=== PATIENT | female | born 1940 | race Caucasian/White ===

== ENCOUNTER → 2024-07-07 11:13 | Outpatient (BNVA) | payer MEDICARE, SELFPAY | PROVIDERS: PCP Family Medicine; Visit Provider Podiatrist Foot & Ankle Surgery | DX: I73.9 Peripheral vascular disease, unspecified (principal); L60.3 Nail dystrophy; Q82.8 Other specified congenital malformations of skin; M20.10 Hallux valgus (acquired), unspecified foot | CPT/HCPCS: 11056; 11721; 99203 ==

== ENCOUNTER → 2024-07-28 10:36 | Outpatient (BNVA) | payer MEDICARE, SELFPAY | PROVIDERS: PCP Family Medicine; Visit Provider Podiatrist Foot & Ankle Surgery | DX: Q82.8 Other specified congenital malformations of skin (principal); L60.3 Nail dystrophy; I73.9 Peripheral vascular disease, unspecified; M20.10 Hallux valgus (acquired), unspecified foot | CPT/HCPCS: 17110 ==

== ENCOUNTER → 2024-09-29 09:49 | Outpatient (BNVA) | payer MEDICARE, SELFPAY | PROVIDERS: PCP Family Medicine; Visit Provider Podiatrist Foot & Ankle Surgery | DX: I73.9 Peripheral vascular disease, unspecified (principal); L60.3 Nail dystrophy; Q82.8 Other specified congenital malformations of skin | CPT/HCPCS: 11056; 11721 ==

== ENCOUNTER → 2024-12-06 12:37 | Outpatient (BNVA) | payer MEDICARE, SELFPAY | PROVIDERS: PCP Family Medicine; Visit Provider Podiatrist Foot & Ankle Surgery | DX: I73.9 Peripheral vascular disease, unspecified (principal); L60.3 Nail dystrophy; Q82.8 Other specified congenital malformations of skin | CPT/HCPCS: 11055; 11721 ==

== ENCOUNTER → 2025-02-16 13:53 | Outpatient (BNVA) | payer MEDICARE, SELFPAY | PROVIDERS: PCP Family Medicine; Visit Provider Podiatrist Foot & Ankle Surgery | DX: I73.9 Peripheral vascular disease, unspecified (principal); L60.3 Nail dystrophy; Q82.8 Other specified congenital malformations of skin; L60.8 Other nail disorders | CPT/HCPCS: 11056; 11721 ==

== ENCOUNTER 2025-05-12 10:17 | Emergency (ER) | payer MEDICARE, SELFPAY ==
[2025-05-12 10:19] VITALS: BP 174/91; PULSE 73; RESP 14; TEMP 36.2; O2SAT 95
--- NOTE | 2025-05-12 10:26 | CT_ITS ---
WS: [id number] CT HEAD TECHNIQUE: Noncontrast CT of the head obtained from the skullbase to the vertex. CLINICAL INFORMATION: trauma COMPARISON: None. DLP: 1143.[address] scans at [facility] use at least one of these dose optimization techniques: automated exposure control; mA and/or kV adjustment per patient size (includes targeted exams where dose is matched to clinical indication); or iterative reconstruction. FINDINGS: Intraparenchymal contusion/hematoma involving the RIGHT frontal lobe deep white matter measures 1.2 cm. Moderate surrounding edema. No significant subdural blood products. RIGHT periorbital soft tissue hematoma. No other foci of hemorrhage. Vascular calcification. Mild small vessel changes. Mild parenchymal volume loss. Tiny chronic lacunar infarct LEFT thalamus. CT/CT head wo con* [id number] IMPRESSION: 1. Intraparenchymal contusion/hematoma in the RIGHT frontal deep white matter measuring 1.2 cm with moderate surrounding edema. This may be from recent fall approximately 1 week ago. No other visualized blood products. Outside compariso ns have been requested. 2. RIGHT periorbital hematoma.
--- NOTE | 2025-05-12 10:26 | CT_ITS ---
WS: [id number] CT CERVICAL TRAUMA TECHNIQUE: Noncontrast CT of the cervical spine with coronal and sagittal reformatted images. CLINICAL INFORMATION: fall COMPARISON: None. DLP: 160.[address] scans at [facility] use at least one of these dose optimization techniques: automated exposure control; mA and/or kV adjustment per patient size (includes targeted exams where dose is matched to clinical indication); or iterative reconstruction. FINDINGS: Straightening of the normal cervical lordosis. Normal craniocervical junction. Normal C1-C2 articulation. Dens is normal in appearance. Normal occipital condyles. No high-grade spinal canal narrowing. Normal C1 ring. No evidence of acute fracture or dislocation. Moderate carotid bulb calcification. Normal prevertebral soft tissues. Mastoids air cells are well aerated. CT/CT cervical spin wo con* [id number] IMPRESSION: No evidence of acute fracture or dislocation.
--- NOTE | 2025-05-12 10:26 | XR_ITS ---
WS: [id number] Left hand, 3 views, 05/12/2025 Clinical Data: fall Comparison: None. Findings: No fractures or dislocations are seen. The soft tissues are unremarkable. 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 XR/XR hand LT min 3V* [id number] Impression: Negative for fracture or dislocation.
--- NOTE | 2025-05-12 10:26 | CT_ITS ---
WS: [id number] CT FACIAL BONES TECHNIQUE: Noncontrast facial bones with coronal and sagittal reformatted images. CLINICAL INFORMATION: fall/injury COMPARISON: None. DLP: 572.[address] scans at [facility] use at least one of these dose optimization techniques: automated exposure control; mA and/or kV adjustment per patient size (includes targeted exams where dose is matched to clinical indication); or iterative reconstruction. FINDINGS: Large RIGHT periorbital hematoma. Lateral orbit appears intact. No acute orbital fractures. Normal RIGHT zygoma. Normal pterygoid plates. Paranasal sinuses are well aerated. Mastoid air cells are well aerated. Nasal bones appear intact. Normal RIGHT sphenoid wing. Mild mucosal thickening in the LEFT greater than RIGHT maxillary sinuses. CT/CT facial bones wo con* [id number] IMPRESSION: No acute fractures.
--- NOTE | 2025-05-12 10:27 | ED_ITS ---
HPI - Fall General: Chief Complaint: Fall Stated Complaint: FALL Time Seen by Provider: 05/12/25 10:19 Source: patient and family Mode of arrival: wheelchair Limitations: no limitations History of Present Illness: Patient is an 84-year-old female presents to ED today along with her significant other for evaluation following a fall. Patient states she was in the hospital when she accidentally caught her foot causing her to fall and strike her face. Her main complaint is pain to her lip. No LOC. She is not complaining of back or hip/leg pain. She does have a right periorbital hematoma that is old from a previous injury/fall. Tetanus is up-to-date. She states she also sustained a skin tear to her left hand. MD complaint: fall Onset (ago): minute(s) Fall from: standing Fall witnessed: yes, by bystander Place fall occurred: other (hospital) Loss of consciousness: None Prolonged down time: no Symptoms prior to fall: none Context: tripped/slipped Location of injury: face Location of injury - extremities: Left: hand Severity: moderate Associated symptoms-after fall: Reports no associated symptoms; Denies abdominal pain, chest pain, headache(s), hematuria, lightheadedness or neck pain Related Data Home Medications ?Medication ?Instructions ?Recorded ?Confirmed aspirin 81 mg tablet,delayed 81 mg PO DAILY 05/12/25 1 07/13/24 release atenolol 50 mg tablet 50 mg PO DAILY 05/12/2504/25 cholecalciferol (vitamin D3) 25 25 mcg PO DAILY 05/12/25 mcg (1,000 unit) tablet (Vitamin D3) doxycycline hyclate 100 mg capsule 100 mg PO BID x5d 1 07/13/24 05/12/25 furosemide 20 mg tablet 20 mg PO DAILY 05/12/2504/25 hydrocodone 5 mg-acetaminophen 325 1 tab PO Q6H PRN Pa in 05/12/25 05/12/25 mg tablet levetiracetam 500 mg tablet 500 mg PO BID x5d 05/12/25 05/12/25 [id number]-[id number]-[id number] tablet 1 tab PO DAILY 05/12/25 prednisone 20 mg tablet 40 mg PO DAILY x5days 05/12/25 Previous Rx's ?Medication ?Instructions ?Recorded fluorouracil 5 % topical cream 1 applic topical BID 4 weeks #40 07/28/24 (Efudex) grams Allergies Allergy/AdvReac Type Severity Reaction Status Date / Time hydrocodone Allergy unknown Verified 05/12/25 09:40 tramadol Allergy ADR-Confusi Verified 05/12/25 09:40 on Review of Systems Eyes: Denies: change in vision, blurry vision, photophobia, eye discharge, floaters or seeing flashes ENMT: Reports: other (lip laceration); Denies: throat pain, odynophagia, ear or mastoid pain, ear discharge, nasal discharge, epistaxis or sinus pain Card: Denies: chest pain, palpitations, lightheadedness, syncope or pre- syncope Resp: Denies: dyspnea or pain on inspiration GI: Denies: abdominal pain, nausea or vomiting : Denies: flank pain or hematuria Musc: Reports: extremity pain (L hand, skin tear); Denies: neck pain, back pain or joint pain Skin/Breast: Reports: other (laceration L lower lip) Neuro: Denies: headache(s), numbness in extremities, weakness in extremities, sensory changes or dizziness PFS ED PFSH: Social History Smoking and tobacco/nicotine status: unknown if used tobacco/nicotine Physical Exam Const: COMMON NORMALS: no acute distress, average body habitus, patient oriented x3, no limitations, healthy appearing, alert and well nourished GENERAL APPEARANCE: cooperative ORIENTATION/CONSCIOUSNESS: Yes awake, Yes oriented to person, Yes oriented to place and Yes oriented to time HENMT: COMMON NORMALS: normocephalic, atraumatic, external ears normal, EAC's normal and TM's normal bilaterally HEAD & SCALP: normal to inspection, normocephalic and atraumatic; no Nunez's sign, no hematoma and no raccoon eyes FACE & SINUS: other (old/previous R periorbital hematoma with gravitating healing ecchymosis) NOSE: Other nasal findings present (scant amount of fresh blood to L nare-no active bleeding) EXTERNAL EAR: Yes external ears normal EXTERNAL AUDITORY CANAL: EAC's normal TYMPANIC MEMBRANE: TM's normal bilaterally MOUTH: tongue normal, Normal salivary glands and ducts present and lip abnormal (laceration L lower lip) TEETH & GINGIVA: Yes edentulous and Yes other (upper/lower dentures ) THROAT: posterior oropharynx normal and tonsils normal Eye: COMMON NORMALS: Equal, round and reactive pupils present and EOMs intact bilaterally GENERAL EYE: appearance normal, both eyes and all related structures and normal light reflex PUPIL: Yes Equal, round and reactive pupils present DIRECT OPHTHALMOSCOPY: Yes normal light reflex Neck/C-Spine: GENERAL: Yes normal visual inspection CERVICAL SPINE: No step off deformity OTHER: in c-collar upon arrival-not removed for ROM testing Chest: COMMONS NORMALS: normal inspection of the chest and normal palpation of entire chest wall Resp: COMMON NORMALS: normal respiratory effort and clear to auscultation bilaterally AUSCULTATION: clear to auscultation bilaterally Cardio: COMMON NORMALS: regular rate and regular rhythm RATE: regular rate RHYTHM: regular rhythm GI: COMMON NORMALS: Normal to inspection, nondistended, normoactive bowel sounds present, Soft to palpation, non-tender, No hepatosplenomegaly present and no masses INSPECTION: Yes normal to inspection and No abdominal wall ecchymosis AUSCULTATION: Yes normoactive bowel sounds PALPATION: Yes Soft to palpation and Yes No hepatosplenomegaly present Back/Pelvis: COMMON NORMALS: thoracic and lumbar spine normal to inspection, no thoracic nor lumbar tenderness and thoraco-lumbar ROM normal Extremity: COMMON NORMALS: full ROM and capillary refill normal GENERAL: Yes normal exam except as noted LEFT UPPER EXTREMITY: Yes hand & digits (small skin tear lateral L hand) Left hand and digits: Yes ROM (normal) and Yes neurovascular exam (normal) Neuro: VISHNU COMA SCALE: document GCS findings [place] coma scale eye opening: Spontaneous [place] coma scale verbal response: Orientated [place] coma scale motor response: Obey commands [place] coma scale total score: 15 COMMON NORMALS: patient oriented x3, CN's II-XII intact bilaterally, moves all extremities, no focal motor deficits and no sensory deficits noted SENSORIUM/ORIENTATION: Yes alert, Yes oriented to person, Yes oriented to place and Yes oriented to time SPEECH: speech normal GAIT: Yes Normal gait present Skin: COMMON NORMALS: no rashes or lesions noted GENERAL SKIN EXAM: no rashes or lesions noted TRAUMA: abrasion (L hand skin tear) and laceration (L lower lip lac) Procedures Laceration Laceration 1: Site: face (chin) Size (cm): 2.5 Description: linear Depth: simple, single layer Local Anesthetic: lidocaine 2% Amount of anesthesia used (mL): 2.0 Pre-repair: wound explored and irrigated extensively Skin layer closed with: other (prolene) Size (cm): 4-0 Number of sutures: 5 Technique: running Laceration 2: Site: lip Side (If applicable): left Size (cm): 1.5 Description: irregular Depth: simple, single layer Local Anesthetic: lidocaine 2% (mental nerve block) Pre-repair: wound explored and irrigated extensively Skin layer closed with: nylon Size (cm): 4-0 Number of sutures: 3 Technique: simple, interrupted Nerve Block Nerve Block 1: Local Anesthetic: lidocaine 2% Amount of anesthesia used (mL): 1.0 Side: left Intraoral Nerve Block: mental Procedure Successful: Yes Patient Tolerated Procedure: well Complications: none Course Vital Signs: Vital signs: Vital Signs Temperature 98 F 05/12/25 11:04 Pulse Rate 68 05/12/25 11:04 Respiratory Rate 14 05/12/25 11:04 Blood Pressure 159/119 05/12/25 11:04 Pulse Oximetry 94 05/12/25 11:04 Oxygen Delivery Me thod Room Air 05/12/25 11:04 MDM - Fall Medical Decision Making Patient is a nice 84-year-old female here after a trip and fall while in the hospital. She sustained lacerations to her left lower lip as well as her chin that were repaired. Tetanus is up-to-date. CT imaging of her head, cervical spine, and facial bones were obtained. Head CT showing an intraparenchymal contusion/hematoma in her right frontal lobe. Patient states she had fallen last week and was taken to [facility] where she stayed for several days. She was just discharged on Friday. states she had intracranial hemorrhage then. We did contact [facility] and have [facility] records uploaded as well as her CT scans from [facility]. I have spoken to Dr. Yusuf multiple times who has reviewed CT scan from today as well as CT scans upon [facility] discharge and CT scan today looks improved. Area noted on today's scan was present at discharge. Skin tear to hand was dressed. She will be allowed discharge. Medical Records I reviewed the patient's medical records. Lab Data Radiology Impressions Cervical Spine CT 05/12/25 10:26 IMPRESSION: No evidence of acute fracture or dislocation. Face CT 05/12/25 10:26 IMPRESSION: No acute fractures. Hand X-Ray 05/12/25 10:26 Impression: Negative for fracture or dislocation. Head CT 05/12/25 10:26 IMPRESSION: 1. Intraparenchymal contusion/hematoma in the RIGHT frontal deep white matter measuring 1.2 cm with moderate surrounding edema. This may be from recent fall approximately 1 week ago. No other visualized blood products. Outside comparisons have been requested. 2. RIGHT periorbital hematoma. All radiology interpretation(s) finalized by discharge Discharge Plan Discharge Patient Disposition: Home Clinical Impression: Fall on same level from tripping Chin laceration Qualifiers: Encounter type: initial encounter Qualified Code(s): S01.81XA - Laceration without foreign body of other part of head, initial encounter Laceration of lower lip Qualifiers: Encounter type: initial encounter Qualified Code(s): S01.511A - Laceration without foreign body of lip, initial encounter Skin tear of left hand without complication Qualifiers: Encounter type: initial encounter Qualified Code(s): S61.412A - Laceration without foreign body of left hand, initial encounter Contusion of face Qualifiers: Encounter type: initial encounter Qualified Code(s): S00.83XA - Contusion of other part of head, initial encounter Condition: Stable Prescriptions: No Action fluorouracil [Efudex] 5 % cream 1 applic topical BID 28 Days Qty: 40 0RF doxycycline hyclate 100 mg capsule 100 mg PO BID levetiracetam 500 mg tablet 500 mg PO BID hydrocodone-acetaminophen 5-325 mg tablet 1 tab PO Q6H PRN (Reason: Pain) prednisone 20 mg tablet 40 mg PO DAILY aspirin 81 mg tablet,delayed release (DR/EC) 81 mg PO DAILY furosemide 20 mg tablet 20 mg PO DAILY atenolol 50 mg tablet 50 mg PO DAILY Centrum Silver Tablet 1 tab PO DAILY cholecalciferol (vitamin D3) [Vitamin D3] 25 mcg (1,000 unit) Tablet 25 mcg PO DAILY Discharge Orders: Discharge ED (Routine); Ordered 05/12/25 Ordered By: Latonya Chilel Referrals: Matt Lee DO [Primary Care Provider] Patient Instructions: Patient Portal & [place] Instructions Activity Restrictions/Additional Instructions: Keep wound/laceration clean with warm soap and water twice daily. Monitor for signs of infection such as redness, swelling, increased pain, or drainage. Please seek medical re-evaluation if these occur. If you received sutures today these will need to be removed (unless you were told by the provider that they are absorbable). The provider should have discussed with you the length of time until removal-7 days. Print Language: Samoan Coding Level of Care Code ED Optical Assistant for Dyana Contreras
[2025-05-12 11:04] VITALS: BP 159/119; PULSE 68; RESP 14; TEMP 36.6; O2SAT 94
[2025-05-12 12:00] VITALS: BP 150/98; PULSE 71; RESP 18; O2SAT 98
[2025-05-12 12:30] VITALS: BP 96/65; PULSE 72; RESP 17; TEMP 36.6; O2SAT 97
[2025-05-12 14:37] VITALS: BP 124/86; PULSE 71; RESP 16; O2SAT 97
== END 2025-05-12 14:39 | disposition home or self-care (01) ==
PROVIDERS: Emergency Provider Physician Assistant; PCP Family Medicine
DX: S01.81XA Laceration without foreign body of other part of head, initial encounter (principal); S01.511A Laceration without foreign body of lip, initial encounter; S61.412A Laceration without foreign body of left hand, initial encounter; Z79.82 Long term (current) use of aspirin; W01.0XXA Fall on same level from slipping, tripping and stumbling without subsequent striking against object, initial encounter
CPT/HCPCS: 12013; 70450; 70486; 72125; 73130; 99284